=== PATIENT | male | born 1940 | race Caucasian/White ===

== ENCOUNTER → 2017-02-28 | Outpatient (CLI) | payer MEDICARE, BC ==
--- NOTE | 2017-02-28 14:38 | XR ---
Limited cervical spine HISTORY: Chronic neck and back pain 3 views of the cervical spine Correlation CT soft tissue neck 02/26/2014 Bone mineralization is reduced. There is spondylosis present especially at C5-6 and C6-7 with associa raina loss of disc height. Retrolisthesis is present at C6-7. Multilevel facet arthropathy changes are present. C7-T1 not well seen. There are calcified granuloma in the upper lobes. Vascular calcificatio n seen within the carotid arteries. IMPRESSION: Degenerative disc disease. Facet arthropathy. Osteopenia. Limitations as described. 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
--- NOTE | 2017-02-28 14:41 | XR ---
Lumbar spine HISTORY: Back pain 3 views of the lumbar spine No comparisons Bone mineralization is reduced. Anterolisthesis grade 1 L4-5, L3-4. Lumbar vertebral bodies show pres erved height. There is multilevel spondylosis. Sclerosis present in the posterior elements. Loss of d isc height especially at L5-S1, L4-5, L3-4. There may be a slight spinal curvature. IMPRESSION: Degenerative disc disease, facet arthropathy, osteopenia.
== END | disposition home or self-care (01) ==
LOC: RADXRMAIN 14:05
PROVIDERS: ATTEND Chiropractor
DX: M50.30 Other cervical disc degeneration, unspecified cervical region (principal); M51.36 Other intervertebral disc degeneration, lumbar region; M46.82 Other specified inflammatory spondylopathies, cervical region; M46.86 Other specified inflammatory spondylopathies, lumbar region; M85.88 Other specified disorders of bone density and structure, other site
CPT/HCPCS: 72040; 72100

== ENCOUNTER → 2017-03-14 | Outpatient (CLI) | payer MEDICARE, BC | LOC: CPPFTMAIN 13:38 | PROVIDERS: ATTEND Internal Medicine | DX: J44.9 Chronic obstructive pulmonary disease, unspecified (principal); R06.09 Other forms of dyspnea | CPT/HCPCS: 94060; 94726; 94729 ==

== ENCOUNTER → 2017-04-10 | Outpatient (CLI) | payer MEDICARE, BC ==
[2017-04-10 13:24] LABS: Basophils % (A) 1 %; CH 31.7; CHCM 33.5; Eosinophils # (A) 0.1 k/uL (0-0.7); Eosinophils % (A) 1 %; HDW 2.39; HGB 13.6 gm/dL (13.0-17.5); Luc % (Auto) 2; Lymphocytes # (A) 0.9 k/uL (1.0-4.8); Lymphocytes % (A) 14 %; MCH 31.7 pg (25.0-35.0); MCHC 33.3 g/dL (31.0-37.0); MCV 95.3 fL (80.0-100.0); Mean Platelet Volume 7.9; Monocytes # (A) 0.6 k/uL (0-1.0); Monocytes % (A) 9 %; Neutrophils # (A) 4.8 k/uL (1.3-7.7); Neutrophils % (A) 74 %; RDW 14.2 % (11.5-15.5); WBC 6.5 k/uL (3.8-10.6); WBC (Perox) 6.39
[2017-04-10 13:50] LABS: Rheumatoid Factor, Qnt <9 IU/mL (<12)
[2017-04-10 13:51] LABS: C Reactive Protein <5.0 mg/L (<10.0)
[2017-04-10 15:18] LABS: Erythrocyte Sedimentation Rate 13 mm/hr (0-15)
[2017-04-10 20:29] LABS: ANA w/Reflex to Titer NEGATIVE (NEGATIVE); Cyclic Citrull Pep IgG Unit <0.5 U/mL; Cyclic Citrullinated Pep IgG NEGATIVE (NEGATIVE); Scleroderma SC-70 Ab Interp NEGATIVE (NEGATIVE)
[2017-04-12 11:04] LABS: Alternaria alternata IgE <0.35 kU/L (<0.35); Asperg. fumagatus IgE <0.35 kU/L (<0.35); Asperg. fumagatus IgE Class CLASS 0; Birch(Com.Silvr) IgE Class CLASS 0; Cat Epith & Dander IgE <0.35 kU/L (<0.35); Cat Epith & Dander IgE Class CLASS 0; Clad herbarum IgE <0.35 kU/L (<0.35); Clad herbarum IgE Class CLASS 0; Common Ragweed IgE Class CLASS 0; Dermato. Pteronyssinus Class CLASS 0; Dermato. Pteronyssinus IgE <0.35 kU/L (<0.35); Dermato. farinae IgE <0.35 kU/L (<0.35); Dermato. farinae IgE Class CLASS 0; IgE (Allergen) 24.8 IU/mL (<114.0); Maple (Box Elder) IgE <0.35 kU/L (<0.35); Maple (Box Elder) IgE Class CLASS 0; Mountain Cedar IgE <0.35 kU/L (<0.35); Mountain Cedar IgE Class CLASS 0; Mouse Urine IgE Class CLASS 0; Mouse Urine Proteins,IgE <0.35 kU/L (<0.35); Mulberry IgE Class CLASS 0; Nettle IgE <0.35 kU/L (<0.35); Nettle IgE Class CLASS 0; Oak IgE <0.35 kU/L (<0.35); Penicillium notatum IgE Class CLASS 0; Rough Marshelder IgE <0.35 kU/L (<0.35); Rough Marshelder IgE Class CLASS 0; Timothy Grass IgE <0.35 kU/L (<0.35); Timothy Grass IgE Class CLASS 0; White Ash IgE Class CLASS 0
[2017-04-25 00:05] LABS: Alternaria Alternata IgG 11.8 mcg/mL (< 13.6); Cladosporium herbarium IgG 20.3 mcg/mL (< 14.7); Phoma ssp. IgG 13.7 mcg/mL (< 6.6); Saccaharomospora viridis Not detected (Not detected); Saccaharopoly. rectivirgula Not detected (Not detected)
== END | disposition home or self-care (01) ==
LOC: LABWHC1 12:05
PROVIDERS: ATTEND Internal Medicine
DX: E66.9 Obesity, unspecified (principal); R06.00 Dyspnea, unspecified; R94.2 Abnormal results of pulmonary function studies; I10 Essential (primary) hypertension; J45.50 Severe persistent asthma, uncomplicated
CPT/HCPCS: 36415; 82103; 82104; 82785; 84439; 84443; 85025; 85652; 86001; 86003; 86038; 86140; 86200; 86225; 86226; 86235; 86431; 86606; 86609

== ENCOUNTER → 2017-04-18 | Outpatient (CLI) | payer MEDICARE, BC ==
--- NOTE | 2017-04-18 15:49 | CT ---
EXAMINATION TYPE: CT chest wo con DATE OF EXAM: 04/18/2017 COMPARISON: 02/26/2014. HISTORY: dyspnea CT DLP: 962.1 mGycm. Automated Exposure Control for Dose Reduction was Utilized. TECHNIQUE: CT scan of the thorax is performed without IV contrast. FINDINGS: LUNGS: There is no evidence of focal consolidation, pleural effusion or pneumothorax. On the prone an d supine imaging. Dependent subsegmental atelectasis is seen. Subpleural reticulation is noted, left greater than right at the lung base and can also be seen in subsegmental atelectasis. No honeycombing to suggest fibrosis. At the left lung base there is an elongated opacity along the hemidiaphragm bor maurisio thought to be volume averaging and relate to the hemidiaphragm and atelectasis. Also within the l eft lower lobe adjacent to an old rib 9 fracture posterior laterally there is a focal area of pleural thickening and focal consolidation measuring 1.4 x 0.9 cm with central lucency favored to represent fibrosis from prior lung injury. Multiple old left lateral rib fractures are seen at ribs ribs 8 thro ugh 10 on the left that are calloused and healed. No evidence of bronchiectasis is identified. Lingul ar 4 mm solid pulmonary nodule is present on series 4 image 16. This was vaguely present on the exam of 02/26/2014 and measure 3 mm. This is likely benign related to granulomatous change and was only par tially seen on the prior image from slice selection given its small size. Additionally apical parench ymal calcified granulomas are noted. There is no pleural effusion or pneumothorax seen. The tracheob ronchial tree is patent. MEDIASTINUM: Lack of IV contrast is noted to limit evaluation for mediastinal and especially hilar ad enopathy. There are no definitive greater than 1 cm hilar or mediastinal lymph nodes. No cardiomega ly or pericardial effusion is seen. Moderate three-vessel coronary artery calcifications are present. OTHER: Multilevel moderate degenerative changes of the thoracic spine are seen. Old left-sided healed rib fractures as described above. IMPRESSION: 1. Focal consolidation of the left lower lung adjacent to an old healed rib fracture with the appeara nce of fibrosis favored to represent sequela of prior injury, evolved from the exam of 02/26/2014. 2. Similar appearing lingular pulmonary nodule in comparison to the exam of 02/26/2014 that in combina tion with other calcified pulmonary nodules favors a benign process. 3. Subpleural bilateral reticulation, left greater than right. This can be seen physiologically with age independent of smoking history or relate to atelectasis. No other findings for a UIP or NSIP type pattern are seen. 4. Multiple old healed left-sided rib fractures.
--- NOTE | 2017-04-19 10:46 | ECHOF ---
Referral Reason:DYSPNEA R06.00 MEASUREMENTS -------- HEIGHT: 179.1 cm WEIGHT: 81.6 kg BP: 169/79 RVIDd: 3.6 cm (< 3.3) IVSd: 1.2 cm (0.6 - 1.1) LVIDd: 4.4 cm (3.9 - 5.3) LVPWd: 1.1 cm (0.6 - 1.1) IVSs: 1.8 cm LVIDs: 2.9 cm LVPWs: 1.7 cm LA Diam: 3.0 cm (2.7 - 3.8) LAESV Index (A-L): 29.37 ml/m Ao Diam: 3.6 cm (2.0 - 3.7) AV Cusp: 2.1 cm (1.5 - 2.6) MV EXCURSION: 16.095 mm (> 18.000) MV EF SLOPE: 34 mm/s (70 - 150) EPSS: 1.5 cm MV E Luis Mgiuel: 0.72 m/s MV DecT: 404 ms MV A Luis Miguel: 1.05 m/s MV E/A Ratio: 0.69 FINDINGS -------- Sinus rhythm. This was a technically adequate study. The left ventricular size is normal. There is borderline concentric left ventricular hypertrophy. Overall left ventricular systolic function is normal with, an EF between 55 - 60 %. The right ventricle is mildly enlarged. LA is midly dilated 29-33ml/m2. The right atrium is normal in size. There is mild aortic valve sclerosis. The mitral valve leaflets are mildly thickened. Mild mitral annular calcification present. There is trace mitral regurgitation. The tricuspid valve appears structurally normal. There is no pulmonic regurgitation present. The aortic root size is normal. Normal inferior vena cava with normal inspiratory collapse consistent with estimated right atrial pre ssure of 5 mmHg. There is no pericardial effusion. CONCLUSIONS -------- 1. Sinus rhythm. 2. This was a technically adequate study. 3. The left ventricular size is normal. 4. There is borderline concentric left ventricular hypertrophy. 5. Overall left ventricular systolic function is normal with, an EF between 55 - 60 %. 6. The right ventricle is mildly enlarged. 7. LA is midly dilated 29-33ml/m2. 8. The right atrium is normal in size. 9. There is mild aortic valve sclerosis. 10. The mitral valve leaflets are mildly thickened. 11. Mild mitral annular calcification present. 12. There is trace mitral regurgitation. 13. The tricuspid valve appears structurally normal. 14. There is no pulmonic regurgitation present. 15. The aortic root size is normal. 16. Normal inferior vena cava with normal inspiratory collapse consistent with estimated right atrial pressure of 5 mmHg. 17. There is no pericardial effusion. SUPERVISING LAW ENFORCEMENT ANALYST: Veronica Lozada RDCS
== END | disposition home or self-care (01) ==
LOC: RADCTMAIN 14:38
PROVIDERS: ATTEND Internal Medicine
DX: I34.0 Nonrheumatic mitral (valve) insufficiency (principal); R91.8 Other nonspecific abnormal finding of lung field; I51.7 Cardiomegaly; I35.8 Other nonrheumatic aortic valve disorders; Z87.81 Personal history of (healed) traumatic fracture
CPT/HCPCS: 71250; 93306

== ENCOUNTER → 2017-06-07 | Outpatient (CLI) | payer MEDICARE, BC ==
--- NOTE | 2017-06-07 16:49 | NM ---
EXAMINATION TYPE: NM stress cardiolite complete DATE OF EXAM: 06/07/2017 COMPARISON: NONE HISTORY: Abnormal EKG, shortness of breath, R 94.31, R06.02 TECHNIQUE: After the intravenous administration of 10.9 mCi Tc 99m Sestamibi - Rest images obtained 45 minutes post injection. The patient exercised using a REMEDIOS protocol and 1 minute prior to peak exercise was injected with 27.8 mCi Tc 99m Sestamibi - Stress images obtained 20 minutes post injecti on. FINDINGS: Targeted heart rate was achieved during performance of the study. Review of stress and rest SPECT tori ges demonstrates no distinct perfusion abnormality. Gated analysis shows normal wall motion with an estimated left ventricular ejection fraction of 58 %. There is some gut activity present on the exam. IMPRESSION: No scintigraphic evidence for reversible ischemia within the limits of the exam
--- NOTE | 2017-06-07 18:57 | EST ---
EXERCISE STRESS AGE: 77 SEX: Male. HT: 5 feet 11-1/2 inches WT: 212 PROTOCOL: Cardiolite Puma. STAGE: I DURATION OF EXERCISE: 3:06 HEART RATE REST: 63 BLOOD PRESSURE REST: 135/74 MAXIMUM HEART RATE ACHIEVED: 106 MAXIMUM BLOOD PRESSURE: 144/80 85% MPHR: 121 100% MPHR: 142 METS: 3.6 INDICATION: Chest pain. CLINICAL INFORMATION: Baseline EKG shows sinus rhythm, poor R-wave progression and PVCs. The patient exercised on Puma protocol for a total of 3 minutes, achieving 4 METS, 74% of predicted maximal heart rate without chest pain or diagnostic ST-segment depression. The test was stopped at this level secondary to shortness of breath. CONCLUSIONS: 1. Poor exercise tolerance. 2. Inconclusive EKG part of the stress test due to inability to attain target heart rate. 3. Cardiolite portion of the stress test will be reported separately. MMODL / IJN: [id number] /
== END ==
LOC: RADNMMAIN 11:01
PROVIDERS: ATTEND Internal Medicine Cardiovascular Disease
DX: R06.02 Shortness of breath (principal); R94.31 Abnormal electrocardiogram [ECG] [EKG]
CPT/HCPCS: 93017; 78452; A9500

== ENCOUNTER → 2017-06-28 | Outpatient (CLI) | payer MEDICARE, BC ==
[~2017-06-28] MED LIST: REGADENOSON 0.4 MG/5 ML SYRINGE IV ONE
--- NOTE | 2017-06-28 11:37 | EST ---
EXERCISE STRESS DATE OF SERVICE: 06/28/2017 AGE: 77 SEX: Male HT: 70" WT: 220 pounds PROTOCOL: Lexiscan Cardiolite STAGE: DURATION OF EXERCISE: HEART RATE REST: 63 BLOOD PRESSURE REST: 153/107 MAXIMUM HEART RATE ACHIEVED: 96 MAXIMUM BLOOD PRESSURE: 162/104 85% MPHR: 121 100% MPHR: 142 METS: INDICATION: Chest pain. CLINICAL INFORMATION: STRESS DATA: Pretesting physical examination showed a heart rate of 63, pressure is 153/107 mmHg. Baseline EKG showed sinus rhythm. 0.4 mg of Lexiscan was given over 15 seconds per protocol. The max heart rate was 96 beats per minute and maximum pressure was 162/104 mmHg . Clinically the patient developed chest discomfort. The EKG did not show any significant ST changes, but the patient developed premature ventricular contractions. CONCLUSION: 1. Nondiagnostic electrocardiogram stress testing in response to Lexiscan. 2. Please follow up on the Cardiolite portion on separate report from radiology department. MMODL / IJN: [id number] /
--- NOTE | 2017-06-28 13:51 | NM ---
EXAMINATION TYPE: NM stress lexiscan cardiolite DATE OF EXAM: 06/28/2017 COMPARISON: Previous exam 06/07/2017 HISTORY: Abnormal EKG TECHNIQUE: After the intravenous administration of 11.2 mCi Tc 99m Sestamibi - Cardiolite resting SP ECT images acquired 60 minutes post injection. The patient received 0.4mg Lexiscan, 25.2 mCi Tc 99m Sestamibi - Stress images obtained [address] injection FINDINGS: Review of stress and rest SPECT images demonstrates some decreased reaffirms aquatic along the inferi or anteroseptal left ventricular myocardium towards the base of the heart on stress images as compare d to rest images. Gated analysis shows normal wall motion with an estimated left ventricular ejectio n fraction of 59 %. IMPRESSION: Findings suggest pharmacologically induced left ventricular myocardial ischemia as described A Yellow message has been communicated to Fito Rangel MD~[id number] via the [employer] system on 06/28/2017 1:48 PM, Message ID [id number].
== END | disposition home or self-care (01) ==
LOC: RADNMMAIN 08:14
PROVIDERS: ATTEND Internal Medicine Cardiovascular Disease
DX: R06.09 Other forms of dyspnea (principal)
CPT/HCPCS: 93017; 78452; A9500; J2785

== ENCOUNTER → 2017-08-15 | Outpatient (CLI) | payer MEDICARE, BC | END | disposition home or self-care (01) | LOC: RADUSWWP 08:09 | PROVIDERS: ATTEND Internal Medicine | DX: I73.00 Raynaud's syndrome without gangrene (principal); I77.6 Arteritis, unspecified | CPT/HCPCS: 93923 ==

== ENCOUNTER → 2017-09-07 | Outpatient (CLI) | payer MEDICARE, BC | END | disposition home or self-care (01) | LOC: LABWHC1 10:56 | PROVIDERS: ATTEND Internal Medicine | DX: J45.909 Unspecified asthma, uncomplicated (principal); R05 Cough | CPT/HCPCS: 36415; 83516 ==

== ENCOUNTER → 2017-09-19 | Outpatient (CLI) | payer MEDICARE, BC | END | disposition home or self-care (01) | LOC: LABWHC1 12:48 | PROVIDERS: ATTEND Psychiatry & Neurology Neurology | DX: H02.402 Unspecified ptosis of left eyelid (principal); R13.10 Dysphagia, unspecified; R53.1 Weakness | CPT/HCPCS: 83519; 86255 ==

== ENCOUNTER → 2017-09-30 | Outpatient (CLI) | payer MEDICARE, BC ==
--- NOTE | 2017-09-30 08:44 | MR ---
EXAMINATION TYPE: MR angio head wo con DATE OF EXAM: 09/30/2017 8:37 AM COMPARISON: NONE HISTORY: Dizzy, some hearing loss TECHNIQUE: Time of flight images focusing on the [place] were performed without contrast. FINDINGS: The left vertebral artery is dominant. The right posterior to indicating arteries visualize d. The left is not. Both ophthalmic arteries are visualized. There is normal arborization of the middle cerebral artery. There is no sizable aneurysm. IMPRESSION: Normal MRI of the [place].
--- NOTE | 2017-09-30 08:47 | MR ---
EXAMINATION TYPE: MR brain wo con DATE OF EXAM: 09/30/2017 8:38 AM. COMPARISON: NONE. HISTORY: Dizziness and hearing loss. Technique: Multiplanar, multiecho imaging of the brain was obtained without intravenous contrast. FINDINGS: Midline structures are unremarkable. There is a normal craniocervical junction. Echoplanar diffusion imaging is normal. There is a 2.1 cm retention cyst or polyp seen arising from the inferior aspect of the right maxillar y sinus. There is chronic mucoperiosteal thickening involving the left maxillary sinus. The orbits are unremarkable. There is no CP angle mass lesion. There is both confluent and punctate periventricular white matter change seen in the FLAIR dataset. T his is likely on the basis of small vessel disease and chronic ischemic change. There is no mass effe ct, midline shift or intracranial blood. IMPRESSION: 1. NO ACUTE INTRACRANIAL ABNORMALITY. 2. 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 3. SINUS MUCOSAL DISEASE.
== END | disposition home or self-care (01) ==
LOC: RADMRIMAIN 08:00
PROVIDERS: ATTEND Psychiatry & Neurology Neurology
DX: R90.82 White matter disease, unspecified (principal); R53.1 Weakness; Z86.73 Personal history of transient ischemic attack (TIA), and cerebral infarction without residual deficits
CPT/HCPCS: 70544; 70551

== ENCOUNTER → 2017-10-27 | Outpatient (CLI) | payer MEDICARE, BC ==
--- NOTE | 2017-10-27 13:46 | CT ---
EXAMINATION TYPE: CT chest wo con DATE OF EXAM: 10/27/2017 COMPARISON: 04/18/2017 HISTORY: Myasthenia gravis CT DLP: 447 mGycm. Automated Exposure Control for Dose Reduction was Utilized. TECHNIQUE: CT scan of the thorax is performed without IV contrast. FINDINGS: LUNGS: Calcified right upper lobe pulmonary granuloma is again noted. Similar-appearing consolidation adjacent to an old left lateral rib fracture is seen in comparison to the prior of 04/18/2017 and fe murs chronic pleural thickening and fibrosis. Again there is subpleural reticulation that could relat e to early fibrosis or again may be seen physiologically with age) and a smoking history or related t o atelectasis. No honeycombing is appreciated. No interseptal lobular thickening. Minimal right lower lobe cylindrical bronchiectasis is seen. Left apical granuloma is also noted. Lingular pulmonary nod ules again stable from 2013 and should be considered benign. No new pulmonary nodule or focal consoli dation. No pleural effusion or pneumothorax. The lungs are grossly clear, there is no concerning pare nchymal mass or nodule identified. There is no pleural effusion or pneumothorax seen. The tracheob ronchial tree is patent. MEDIASTINUM: Lack of IV contrast is noted to limit evaluation for mediastinal and especially hilar ad enopathy. There are no definitive greater than 1 cm hilar or mediastinal lymph nodes. No cardiomega ly or pericardial effusion is seen. Moderate three-vessel coronary calcifications are in seen. OTHER: Probable pancreatic parenchymal atrophy is noted. No dilated bowel in the upper abdomen. Thick ening of the adrenal glands is seen that is symmetric bilaterally likely related to adrenal gland hyp erplasia. Multilevel mild compression deformities of the thoracic spine are evident in addition to mi ld multilevel degenerative changes these appear overall similar from 2014. Multiple old left-sided he aled rib fractures are again noted. Minimal bilateral retroareolar symmetric gynecomastia is incident ally noted. IMPRESSION: 1. Stable appearing area of pleural thickening and consolidation in the left lower lobe adjacent to a n old left rib fracture in comparison the prior of 04/18/2017 favored to represent benign pleural thi ckening and fibrosis. 2. Unchanged subpleural reticulation, left greater than right, which again can be seen physiologicall y with age independent of smoking history. Again no other findings of UIP or NSIP are seen. 3. Calcified bilateral apical pulmonary nodules and lingular pulmonary nodule should be considered be nign. 4. Strand-like density of the pancreas is favored to represent pancreatic atrophy although correlatio n with serum amylase and lipase are recommended to exclude pancreatitis.
== END ==
LOC: RADCTMAIN 13:04
PROVIDERS: ATTEND Psychiatry & Neurology Neurology
DX: J64 Unspecified pneumoconiosis (principal); R91.1 Solitary pulmonary nodule; G70.00 Myasthenia gravis without (acute) exacerbation
CPT/HCPCS: 71250

== ENCOUNTER → 2018-10-04 | Outpatient (CLI) | payer MEDICARE, BC ==
--- NOTE | 2018-10-04 11:42 | US ---
EXAMINATION TYPE: US kidneys/renal and bladder DATE OF EXAM: 10/04/2018 COMPARISON: NONE CLINICAL HISTORY: N18.3 CKD. EXAM MEASUREMENTS: Right Kidney: 10.6 x 5.8 x 4.8 cm Left Kidney: 10.9 x 4.9 x 4.7 cm Right Kidney: Inferior pole obscured by bowel gas, hypoechoic nodule measuring 1.1 x 1.3 x 1.0cm Left Kidney: No hydronephrosis or masses seen Bladder: wnl Bilateral Jets seen: Yes IMPRESSION: Hypoechoic nodule lower pole of the right kidney does demonstrate through transmission. Suggestive of a renal cyst.
== END ==
LOC: RADUSWWP 09:29
PROVIDERS: ATTEND Internal Medicine Nephrology
DX: N28.89 Other specified disorders of kidney and ureter (principal); N18.3 Chronic kidney disease, stage 3 (moderate)
CPT/HCPCS: 76770

== ENCOUNTER → 2018-10-12 | Outpatient (CLI) | payer MEDICARE, BC ==
[2018-10-12 10:48] LABS: Basophils % (A) 0 %; Eosinophils # (A) 0.1 k/uL (0-0.7); Eosinophils % (A) 1 %; HCT 37.4 % (39.0-53.0); HGB 12.3 gm/dL (13.0-17.5); Lymphocytes # (A) 0.8 k/uL (1.0-4.8); Lymphocytes % (A) 12 %; MCH 31.2 pg (25.0-35.0); MCV 94.6 fL (80.0-100.0); Mean Platelet Volume 7.6; Monocytes # (A) 0.5 k/uL (0-1.0); Monocytes % (A) 8 %; Neutrophils # (A) 5.1 k/uL (1.3-7.7); Neutrophils % (A) 76 %; Platelet Count 201 k/uL (150-450); RBC 3.95 m/uL (4.30-5.90); WBC 6.6 k/uL (3.8-10.6)
[2018-10-12 11:15] LABS: Appearance,Urine Clear (Clear); Bilirubin,Urine Negative (Negative); Blood,Urine Negative (Negative); Color,Urine Yellow; Glucose,Urine (UA) Negative (Negative); Ketones,Urine Negative (Negative); Leukocyte Esterase,Urine Negative (Negative); Nitrite,Urine Negative (Negative); Protein,Urine Negative (Negative); Specific Gravity,Urine 1.017 (1.001-1.035); Urobilinogen,Urine <2.0 mg/dL (<2.0)
[2018-10-12 16:05] LABS: Iron Saturation 29.25 (15.00-50.00)
[2018-10-12 16:10] LABS: Albumin 4.2 g/dL (3.80-4.90); Anion Gap 5.8 mmol/L (4.00-12.00); Calcium 9.4 mg/dL (8.7-10.3); Carbon Dioxide 24.2 mmol/L (21.6-31.8); Potassium 4.2 mmol/L (3.5-5.5); Uric Acid 7.3 mg/dL (3.7-8.7)
[2018-10-12 17:34] LABS: Parathyroid Hormone Intact 68.4 pg/mL (14.0-72.0)
[2018-10-12 18:02] LABS: Creatinine,Urine Random 95.5 mg/dL
[2018-10-12 18:50] LABS: Total Protein,Urine Random 8.5 mg/dL (0.0-13.5)
== END | disposition home or self-care (01) ==
LOC: LABWHC1 09:48
PROVIDERS: ATTEND Internal Medicine Nephrology
DX: M10.9 Gout, unspecified (principal); E55.9 Vitamin D deficiency, unspecified; N39.0 Urinary tract infection, site not specified; N18.3 Chronic kidney disease, stage 3 (moderate); D63.1 Anemia in chronic kidney disease; N25.81 Secondary hyperparathyroidism of renal origin; R80.9 Proteinuria, unspecified
CPT/HCPCS: 36415; 80048; 81003; 82040; 82306; 82570; 82728; 83540; 83550; 83735; 83970; 84100; 84156; 84550; 85025

== ENCOUNTER → 2019-01-29 | Outpatient (CLI) | payer MEDICARE, BC ==
[2019-01-29 10:39] LABS: Basophils % (A) 1 %; Eosinophils # (A) 0.1 k/uL (0-0.7); Eosinophils % (A) 2 %; HCT 40.5 % (39.0-53.0); HGB 13.5 gm/dL (13.0-17.5); Lymphocytes % (A) 17 %; MCH 31.9 pg (25.0-35.0); MCHC 33.4 g/dL (31.0-37.0); MCV 95.6 fL (80.0-100.0); Monocytes # (A) 0.5 k/uL (0-1.0); Monocytes % (A) 8 %; Neutrophils # (A) 4.3 k/uL (1.3-7.7); Neutrophils % (A) 71 %; Platelet Count 219 k/uL (150-450); RBC 4.23 m/uL (4.30-5.90); RDW 14.2 % (11.5-15.5)
[2019-01-29 11:18] LABS: Appearance,Urine Clear (Clear); Bilirubin,Urine Negative (Negative); Blood,Urine Negative (Negative); Color,Urine Yellow; Glucose,Urine (UA) Negative (Negative); Ketones,Urine Negative (Negative); Leukocyte Esterase,Urine Negative (Negative); Nitrite,Urine Negative (Negative); Protein,Urine Negative (Negative); Specific Gravity,Urine 1.019 (1.001-1.035); Urobilinogen,Urine <2.0 mg/dL (<2.0)
[2019-01-29 16:35] LABS: Anion Gap 8.2 mmol/L (4.00-12.00); BUN/Creat Ratio 20.71 Ratio (12.00-20.00); Calcium 9.5 mg/dL (8.7-10.3); Carbon Dioxide 22.8 mmol/L (21.6-31.8); Potassium 4.1 mmol/L (3.5-5.5)
[2019-01-30 01:34] LABS: Creatinine,Urine Random 165.8 mg/dL
[2019-01-30 01:57] LABS: Total Protein,Urine Random 16.2 mg/dL (0.0-13.5)
== END | disposition home or self-care (01) ==
LOC: LABWHC1 09:41
PROVIDERS: ATTEND Nurse Practitioner Family
DX: N18.3 Chronic kidney disease, stage 3 (moderate) (principal); D63.1 Anemia in chronic kidney disease; N39.0 Urinary tract infection, site not specified; R80.9 Proteinuria, unspecified
CPT/HCPCS: 36415; 80048; 81003; 82570; 84156; 85025

== ENCOUNTER → 2022-02-28 | Outpatient (CLI) | payer MEDICARE, BC ==
[2022-02-28 17:58] LABS: HGB 13.1 g/dL (13.0-17.0); MCH 32.2 pg (27.0-32.0); MCHC 32.8 g/dL (32.0-37.0); MCV 98.3 fL (80.0-97.0); Mean Platelet Volume 10.9 fL (9.5-12.2); NRBC Per 100 WBC 0 /100 WBCS (0.0-0.0); Platelet Count 205 X 10*3/uL (140-440); RBC 4.07 X 10*6/uL (4.40-5.60); RDW 12.8 % (11.5-14.5); WBC 6.17 X 10*3/uL (4.50-10.00)
[2022-02-28 18:15] LABS: African American GFR (CKD) 58.4 (60.0-200.0); Anion Gap 10.4 mmol/L (10.00-18.00); Blood Urea Nitrogen 26.6 mg/dL (9.0-27.0); Carbon Dioxide 23.1 mmol/L (20.0-27.5); Non-African American GFR(CKD) 50.3 (60.0-200.0); Potassium 4.9 mmol/L (3.5-5.5)
== END | disposition home or self-care (01) ==
LOC: LABPAT 12:18
PROVIDERS: ATTEND Internal Medicine Interventional Cardiology
DX: Z01.812 Encounter for preprocedural laboratory examination (principal); I49.5 Sick sinus syndrome; I47.20 Ventricular tachycardia, unspecified
CPT/HCPCS: 80051; 82565; 84520; 85027

== ENCOUNTER 2022-03-04 09:58 | Day surgery (SDC) | payer MEDICARE, BC ==
[2022-03-03 09:17] VITALS: BMI 28.7
[~2022-03-04 09:58] MED LIST changes: +ALPRAZolam 0.25 MG TAB PO PRN; +ALPRAZolam 0.5 MG TAB PO PRN; +ASPIRIN 325 MG TAB PO STA; +ATORVASTATIN 80 MG TAB PO STA; +HEPARIN SODIUM,PORCINE 10,000 UNIT in SODIUM CHLORIDE 0.9% 1,000 ML IRRIGATION PRN; +HEPARIN SODIUM,PORCINE 2,500 UNIT in SODIUM CHLORIDE 0.9% 250 ML IRRIGATION PRN; +NITROGLYCERIN SL TABS 0.4 MG TAB SUBLINGUAL PRN; -REGADENOSON 0.4 MG/5 ML SYRINGE IV ONE
[2022-03-04] MEDS: SODIUM CHLORIDE 0.9% 1,000 ML in EMPTY BAG 1 BAG IV SCH ×2 (10:20→17:40)
[2022-03-04] MEDS ORDERED: ASPIRIN 81 MG ONE (10:38)
[2022-03-04] MEDS ORDERED: LIDOCAINE 1% INJ 10MG/ML (30 ML VIAL-PF) SQ ONE (12:50)
[2022-03-04] MEDS ORDERED: MIDAZOLAM 2 MG/2 ML VIAL IV ONE (12:50)
[2022-03-04] MEDS ORDERED: HEPARIN SODIUM 1,000 UN/ML (10ML VL) IV ONE (13:11)
[2022-03-04] MEDS ORDERED: traMADol 50 MG TAB PO PRN (13:36)
[2022-03-04] MEDS ORDERED: ZOLPIDEM 5 MG TAB PO PRN (13:37)
[2022-03-04] MEDS ORDERED: MAG HYDROX/AL HYDROX/SIMETH 30 ML CUP PO PRN (13:37)
[2022-03-04] MEDS ORDERED: ATROPINE SULFATE 0.1 MG/ML 10ML SYRINGE IV PRN (13:37)
[2022-03-04] MEDS ORDERED: RX INFO: IV CONTRAST WAS GIVEN 1 EACH MISC MISCELLANE PRN (13:37)
[2022-03-04] MEDS ORDERED: CLOPIDOGREL 75 MG TAB PO ONE (13:38)
[2022-03-04] MEDS ORDERED: IOPAMIDOL-370 125ML BTL INJ ONE (13:39)
--- NOTE | 2022-03-04 13:43 | P.PCN ---
Date of Procedure: 03/04/22 Operative Findings: CARDIAC CATHETERIZATION AND PERCUTANEOUS CORONARY INTERVENTION PERFORMING PHYSICIAN: Fito Rangel MD, [facility] PROCEDURE PERFORMED: 1. Selective right and left coronary angiogram 2. Left heart catheterization 3. Successful stenting of first obtuse marginal branch using 3.0 x 18 mm Xience TYLER which with an excellent angiographic results 4. Selective right common femoral artery and INDICATION: This is an 81-year-old gentleman was known coronary artery disease based on heart catheterization was performed somewhere out of [facility] as well as hypertension and dyslipidemia who sees Dr. Smith regularly was experiencing symptoms of shortness of breath with exertional concerning for angina. He underwent a Holter monitor and that showed DVC burden at 12%. He was having also polymorphic PVCs. In the light of that a heart catheterization was advised to rule out severe underlying coronary artery disease. COMPLICATION: None APPROACH: Right radial artery and right common femoral artery LEVEL OF SEDATION: Moderate with the sedation time off 43 minutes PROCEDURE DESCRIPTION: After obtaining an informed consent the patient was brought to the cardiac minilab operator. Initially the right radial artery was accessed but the right radial artery was extremely calcified and we could not advance the wire. Because of that the right radial approach was aborted and I decided to go from the groin. The right common femoral artery was cannulated using micropuncture technique, the micro- puncture wire passed easily then I placed a 6-Cuban sheath. Selective right and left coronary angiogram was performed using JR4 and JL4 catheters. Left heart catheterization was performed using the JR4 catheter. After that I did intervene on the LCx. The procedure was completed without any complications SELECTIVE CORONARY ANGIOGRAM: The right coronary artery: Large-caliber vessel nondominant vessel. The RCA has mild to moderate diffuse disease with no high-grade stenosis Left main: Long but angiographically normal. Bifurcates into a LCx and LAD The left circumflex: Large caliber vessel nondominant vessel. The LCx gives rises into a large OM branch which has a critical lesion appeared to be in the range of 80-90% The left anterior descending artery: Large caliber vessel was mild to moderate diffuse disease was no high-grade stenosis HEMODYNAMICS: The old EDP was 6 mmHg was no significant gradient across aortic valve PCI OF THE obtuse marginal: Anticoagulation was initiated using heparin with continuous ACT monitoring. Subsequently and because of the extreme tortuosity in the right iliac I decided to change my 11 cm sheath into 23 cm sheath. Subsequently I did engage the left main using CLS guiding catheter which was 3.5. I did wire the OM using 2 wires the first wire was a whisper and the second wire was advanced through. PTCA ballooning was performed using 2.5 x 12 mm balloon. Subsequently I deployed 3.0 x 18 mm stent where the stent was positioned under fluoroscopy guidance and deployed under its nominal pressure. The following angiogram showed excellent angiographic results and the procedure was completed without any complications CONCLUSION: Critical disease involving OM1. Successful stenting was performed using 3.0 x 18 mm stent with an excellent angiographic results Mild to moderate disease involving the LAD [id number] disease involving the RCA Normal left-sided filling pressure POSTPROCEDURE MANAGEMENT: #1 dual antiplatelet therapy with aspirin and Plavix for a minimum of 6 month and preferably twelve-month #2 aggressive cholesterol control #3 follow-up with the patient
[2022-03-04] MEDS ORDERED: NIFEdipine XL 30 MG TAB.ER.24 PO SCH (14:00)
[2022-03-04] MEDS: carvediloL 6.25 MG TAB PO SCH (17:40)
[2022-03-04] MEDS: ACETAMINOPHEN TAB 325 MG TAB PO SCH (20:38)
[2022-03-04] MEDS ORDERED: ALPRAZolam 0.25 MG TAB PO SCH (21:00)
[2022-03-04] MEDS ORDERED: ASPIRIN 81 MG PO SCH (21:00)
[2022-03-05 07:04] LABS: Basophils % (A) 1 %; Eosinophils # (A) 0.1 k/uL (0-0.7); Eosinophils % (A) 2 %; HCT 39.7 % (39.0-53.0); HGB 13.4 gm/dL (13.0-17.5); Lymphocytes # (A) 1.1 k/uL (1.0-4.8); Lymphocytes % (A) 16 %; MCH 32.9 pg (25.0-35.0); MCHC 33.8 g/dL (31.0-37.0); MCV 97.5 fL (80.0-100.0); Mean Platelet Volume 8.8; Monocytes # (A) 0.7 k/uL (0-1.0); Monocytes % (A) 10 %; Neutrophils # (A) 4.6 k/uL (1.3-7.7); Neutrophils % (A) 70 %; Platelet Count 176 k/uL (150-450); RBC 4.08 m/uL (4.30-5.90); RDW 12.4 % (11.5-15.5); WBC 6.6 k/uL (3.8-10.6)
[2022-03-05 07:14] LABS: African American GFR (CKD) 78 (>60 ml/min/1.73 sqM); Anion Gap 10 mmol/L; Blood Urea Nitrogen 23 mg/dL (9-20); Calcium 8.9 mg/dL (8.4-10.2); Carbon Dioxide 21 mmol/L (22-30); Chloride 106 mmol/L (98-107); Glucose 93 mg/dL (74-99); Non-African American GFR(CKD) 68 (>60 ml/min/1.73 sqM); Potassium 4.2 mmol/L (3.5-5.1); Sodium 137 mmol/L (137-145)
[2022-03-05] MEDS: ACETAMINOPHEN TAB 325 MG TAB PO SCH (07:46)
[2022-03-05] MEDS: carvediloL 6.25 MG TAB PO SCH (07:46)
[2022-03-05] MEDS ORDERED: CLOPIDOGREL 75 MG TAB PO SCH (09:00)
[2022-03-05] MEDS ORDERED: ATORVASTATIN 40 MG TAB PO SCH (09:00)
[2022-03-05] MEDS ORDERED: CHOLECALCIFEROL 25 MCG (1000 IU) TABLET PO SCH (09:00)
[2022-03-05 09:19] VITALS: BP 149/94; PULSE 48; RESP 18; TEMP 97.6
--- NOTE | 2022-03-05 09:22 | P.DS ---
Providers Attending physician: Fito Rangel Consults: 03/04/22 13:37 Consult Physician Routine Consulting Provider: [facility] Consult Reason/Comments: Post Interventional patient Do you want consulting provider notified?: Already Contacted Primary care physician: [facility] Course: The patient is a very pleasant 81-year-old gentleman who underwent yesterday a heart catheterization and stenting of the left circumflex. The patient was seen this morning. He is asymptomatic. He is hemodynamically stable. The right groin is soft and nontender and with no bruises. The patient is going to be discharged home on dual antiplatelet therapy including aspirin and Plavix and also high intensity statin and the patient will be seen by Dr. Smith his primary boiler erector in a week or so. Plan - Discharge Summary Discharge Rx Participant: No New Discharge Prescriptions: New Clopidogrel [Plavix] 75 mg PO DAILY #90 tab Continue Cholecalciferol [Vitamin D3 (25 Mcg = 1000 Iu)] 50 mcg PO DAILY ALPRAZolam [Niravam (ODT)] 0.25 mg PO HS NIFEdipine [Adalat CC] 30 mg PO 1400 Atorvastatin [Lipitor] 40 mg PO DAILY carvediloL [Coreg] 6.25 mg PO BID traMADol HCL 50 mg PO TID PRN PRN Reason: Pain Aspirin [Adult Low Dose Aspirin EC] 81 mg PO HS Acetaminophen [Tylenol Arthritis] 650 mg PO BID Discharge Medication List ALPRAZolam [Niravam (ODT)] 0.25 mg PO HS 03/03/22 [History] Acetaminophen [Tylenol Arthritis] 650 mg PO BID 03/03/22 [History] Aspirin [Adult Low Dose Aspirin EC] 81 mg PO HS 03/03/22 [History] Atorvastatin [Lipitor] 40 mg PO DAILY 03/03/22 [History] Cholecalciferol [Vitamin D3 (25 Mcg = 1000 Iu)] 50 mcg PO DAILY 03/03/22 [History] NIFEdipine [Adalat CC] 30 mg PO 1400 03/03/22 [History] carvediloL [Coreg] 6.25 mg PO BID 03/03/22 [History] traMADol HCL 50 mg PO TID PRN 03/03/22 [History] Clopidogrel [Plavix] 75 mg PO DAILY #90 tab 03/05/22 [Rx] Follow up Appointment(s)/Referral(s): Lucien Smith MD [STAFF PHYSICIAN] - 1 Week
== END 2022-03-05 09:56 | disposition home or self-care (01) ==
LOC: CATHCVL 09:58 → 6NMEDSUR 13:30 → CATHCVL 03-05 09:56
PROVIDERS: ATTEND Internal Medicine Interventional Cardiology
DX: I25.10 Atherosclerotic heart disease of native coronary artery without angina pectoris (principal); I10 Essential (primary) hypertension; I70.208 Unspecified atherosclerosis of native arteries of extremities, other extremity; E78.5 Hyperlipidemia, unspecified; I49.3 Ventricular premature depolarization; G47.33 Obstructive sleep apnea (adult) (pediatric); I12.9 Hypertensive chronic kidney disease with stage 1 through stage 4 chronic kidney disease, or unspecified chronic kidney disease; N18.9 Chronic kidney disease, unspecified; Z79.82 Long term (current) use of aspirin; Z79.899 Other long term (current) drug therapy; Z88.5 Allergy status to narcotic agent; Z88.2 Allergy status to sulfonamides; Z88.8 Allergy status to other drugs, medicaments and biological substances
CPT/HCPCS: 93458; 80048; 85025; C9600; C1760; C1769 ×4; C1887; C1725; C1894 ×2; C1874; J2250; J2001; J1644; Q9967

== ENCOUNTER → 2022-09-16 | Outpatient (CLI) | payer MEDICARE, BC ==
[2022-09-16 19:22] LABS: African American GFR (CKD) 49.2 (60.0-200.0); Non-African American GFR(CKD) 42.4 (60.0-200.0); Potassium 4.3 mmol/L (3.5-5.5)
[2022-09-16 20:38] LABS: HGB 13.2 g/dL (13.0-17.0); MCH 32.8 pg (27.0-32.0); MCV 99.5 fL (80.0-97.0); Mean Platelet Volume 11.3 fL (9.5-12.2); NRBC Per 100 WBC 0 /100 WBCS (0.0-0.0); Platelet Count 192 X 10*3/uL (140-440); RBC 4.02 X 10*6/uL (4.40-5.60); RDW 13.5 % (11.5-14.5); WBC 6.67 X 10*3/uL (4.50-10.00)
== END | disposition home or self-care (01) ==
LOC: LABPAT 11:12
PROVIDERS: ATTEND Internal Medicine Clinical Cardiac Electrophysiology
DX: Z01.812 Encounter for preprocedural laboratory examination (principal); I49.3 Ventricular premature depolarization; I47.29 Other ventricular tachycardia
CPT/HCPCS: 80051; 82565; 84520; 85027

== ENCOUNTER 2022-09-27 09:11 | Day surgery (SDC) | payer MEDICARE, BC ==
[2022-09-27] MEDS: SODIUM CHLORIDE 0.9% 1,000 ML IV SCH (09:42)
[2022-09-27] MEDS ORDERED: HEPARIN SODIUM,PORCINE 5,000 UNIT/ML 1 ML VIAL ONE (10:28)
[2022-09-27] MEDS ORDERED: ISOPROTERENOL 250 MCG/1.25 ML SYR IV ONE (10:28)
[2022-09-27] MEDS ORDERED: fentaNYL (PF) 50 MCG/ML 2 ML AMP ONE (10:28)
[2022-09-27] MEDS ORDERED: PROTAMINE SULFATE 10 MG/ML 5 ML VIAL IV ONE (10:28)
[2022-09-27] MEDS ORDERED: MIDAZOLAM 2 MG/2 ML VIAL ONE (10:28)
[2022-09-27] MEDS ORDERED: HEPARIN SODIUM,PORCINE 10,000 UNIT/ML 1 ML VIAL ONE (10:28)
--- NOTE | 2022-09-27 10:36 | P.HPCAR ---
History of Present Illness This is Dr. Smith dictating an H/P on this patient The patient was interviewed and examined IMPRESSION / ASSESSMENT: Frequent PVCs and nonsustained VT, 28% PVC burden Recurrent episodes of nonsustained VT on Holter monitor History of sick sinus syndrome Patient's PVCs have remained despite coronary stenting, CAD management and medical treatment with beta blockers Severe sleep apnea, using a CPAP past Hypertension, controlled CAD status post stenting to the obtuse marginal previously Not a candidate for antiarrhythmic drug therapy on account of SSS Preserved LV systolic function PLAN: Diagnostic EP study and possible radiofrequency ablation of PVCs and nonsustained VT HPI Patient continues to have PVCs and frequent episodes of nonsustained ventricular tachycardia despite treatment of coronary artery disease, revascularization of the OM territory and beta blockers He has underlying sick sinus syndrome He denies any fever chills cough No coronary symptoms No heart failure symptoms No angina since he was last seen ROS: No fever chills or rigors, no cough, phlegm or expectoration, no nausea, vomiting or diarrhea, no hematuria, dysuria, no musculoskeletal complaints, no strokes or seizures, no skin lesions. EXAMINATION: Afebrile temperature 96.9, pulse rate 86, blood pressure 134/70. His mercury, pulse ox 95% on room air No JVD No orthopnea Clear lungs no rhonchi no crackles Normal heart sounds no murmurs REVIEW OF LABS, ECG & MEDICAL DATA Medications include carvedilol, nifedipine, Plavix, atorvastatin, aspirin Physical Exam Vitals: Vital Signs Temp Pulse Resp BP Pulse Ox 09/27/22 09:40 96.9 F L 86 18 134/78 95 Intake and Output 09/26/22 09/27/22 09/27/22 22:59 06:59 14:59 Intake Total 20 Balance 20 Intake: IV 20 Other: Weight 94.3 kg Past Medical History Past Medical History: Dementia, Hyperlipidemia, Hypertension, Memory Impairment, Osteoarthritis (OA), Respiratory Disorder, Sleep Apnea/CPAP/BIPAP Additional Past Medical History / Comment(s): "thought he had a stroke after last heart cath" 2018 per spouse, irregular heart beat per spouse, "respiratory issues but they never put a name to it", uses CPAP, has oxygen 2L PRN, no resp. dx., arthritis in spine, see Dr. Smith H & P History of Any Multi-Drug Resistant Organisms: None Reported Past Surgical History: Heart Catheterization With Stent, Hernia Repair, Joint Replacement, Orthopedic Surgery Additional Past Surgical History / Comment(s): precancer removed from face, rt carpal tunnel, ericka knee replacement- 2 each knee(cadaver bone left knee), ericka shoulder surgery-reversal one shoulder, ericka cataracts Past Anesthesia/Blood Transfusion Reactions: Previous Problems w/ Anesthesia Additional Past Anesthesia/Blood Transfusion Reaction / Comment(s): "thought he had a stroke during last heart cath 5 yrs ago from too much anesthesia", possibly from propofol per spouse Date of Last Stent Placement:: 2021 Smoking Status: Former smoker - Past Family History Father Family Medical History: Cancer Physical Examination Vital Signs Temp Pulse Resp BP Pulse Ox 09/27/22 09:40 96.9 F L 86 18 134/78 95 Intake and Output 09/26/22 09/27/22 09/27/22 22:59 06:59 14:59 Intake Total 20 Balance 20 Intake: IV 20 Other: Weight 94.3 kg Results Current Medications Generic Name Dose Route Start Last Admin Trade Name Harveyq PRN Reason Stop Dose Admin Sodium Chloride 1,000 mls @ 50 mls/hr 09/27/22 06:04 09/27/22 09:42 Saline 0.9% IV 10/27/22 06:05 20 mls .Q20H RICKI Administration Intake and Output 09/26/22 09/27/22 09/27/22 22:59 06:59 14:59 Intake Total 20 Balance 20 Intake: IV 20 Other: Weight 94.3 kg Patient Weight 09/28/22 06:59 Weight 94.3 kg
[2022-09-27] MEDS ORDERED: LIDOCAINE 1% INJ 10MG/ML (20 ML MDV) ONE ×2 (10:49→11:25)
[2022-09-27] MEDS ORDERED: HEPARIN SODIUM 1,000 UN/ML (10ML VL) ONE (11:19)
[2022-09-27] MEDS ORDERED: LIDOCAINE 1% INJ 10MG/ML (20 ML MDV) SQ ONE ×2 (11:20→11:28)
[2022-09-27] MEDS ORDERED: HEPARIN SOD,PORK IN 0.45% NACL 25,000 UNIT in 0.45% NACL 1 250ML.BAG IV ONE (11:28)
[2022-09-27] MEDS ORDERED: HEPARIN SODIUM (1,000 UNIT/ML) 1,000 UNIT in SODIUM CHLORIDE 0.9% 1,000 ML IRRIGATION ONE (11:31)
[2022-09-27] MEDS ORDERED: ACETAMINOPHEN IV (For NPO) 1,000 MG in EMPTY BAG 1 BAG IVPB ONE (14:55)
[2022-09-27] MEDS ORDERED: ACETAMINOPHEN TAB 325 MG TAB PO PRN (14:55)
[2022-09-27] MEDS ORDERED: ALPRAZOLAM 0.25 MG PO PRN (14:56)
--- NOTE | 2022-09-27 15:26 | P.EPPROC ---
- EP Procedure Note Electrophysiology Procedure Note: Diagnosis Very frequent PVCs and nonsustained VT despite medical treatment, coronary stenting of the left circumflex and management of risk factors Preserved LV systolic function Final diagnosis Frequent PVCs of multiple different morphologies but predominantly to morphologies The first was LVOT VT from the anterior wall with an MDI of close to 50% consistent with a deep myocardial focus/epicardial focus The second frequent PVC was at RVOT PVC from the free wall/posterior wall of the RVOT Details Patient was brought to the EP lab in a fasting state. Written informed consent was obtained prior to the procedure. Mild conscious sedation was provided through the procedure and the patient was kept fairly awake At first an assessment of his PVC burden and morphology was made. He had very frequent PVCs of different morphologies. Most PVCs were left-sided. However the most frequent PVC was from the outflow tract of the LV and the second most frequent was RVOT PVCs from the free wall/posterior wall. However multiple other morphologies are noted The left-sided PVCs appeared to be deep myocardial an epicardial with an MDI of greater than 50% Cinefluoroscopy of the right hemidiaphragm and then the left hemidiaphragm was performed during inspiration and expiration. There was no evidence for diaphragmatic paralysis Diaphragms at the same level. This was performed since the patient had frequent episodes of hyperventilation and breathlessness in our office on multiple visits However there was no evidence for diaphragmatic paralysis Next, 2 venous sheaths were placed in the left femoral vein and one venous sheaths in the right femoral vein Sheath was placed in the right femoral artery for hemodynamic monitoring and sampling Diagnostic catheters placed in the high right atrium coronary sinus His bundle area right ventricle and later in the aortic root of the left ventricle Hemodynamic monitoring was performed through the procedure and her blood pressure remained stable. Heparin was infused through the procedure with an ACT about 300 seconds The coronary sinus catheter was placed in the anterolateral LV vein but the PVCs did not seem to originate from the LV veins First 3-D electro-anatomic mapping was performed for the right ventricle. Intracardiac echo revealed preserved LV and RV size and function but pericarditis with basal thickening and small exudate The pulmonic valve the tricuspid valve with time. His bundle was tagged The RVOT PVCs were mapped to the free wall/posterior wall junction below the pulmonic valve Activation mapping this was performed and an early site with excellent unipolar signals obtained which had a very high concordance with the clinical PVCs Following that pace mapping was performed which had a very high concordance of greater than 96-97% RF ablation was performed here with 30-35 warts and good contact force These PVCs were eliminated almost completely Following that an irrigated tip cath was placed in the aorta and mapping of the aortic root and the LV was performed The most frequent PVC was dictated from the LV was targeted. This seemed to be in outflow tract PVC. Activation mapping was performed and this was localized to the anterior LVOT wall just in front of the right coronary cusp, close to the commissure RF ablation was performed at 40 W since we knew that this was a deep focus with a high MDI of 50% or greater Reduction in the PVC burden was obtained. Following that high dose Isuprel was started. No RVOT PVCs were noted LV PVCs were noted but without any ventricle couplets or nonsustained VT Sinus cycle length 1072 ms, AZ interval 196 ms, QRS 118 and QT 440 ms . AH interval 86 ms and HV interval 39 ms AV node Wenckebach block 310 ms LV pacing was performed, RV pacing was performed. Patient tolerated the procedure well without any acute complications. The venous puncture sites were closed with Vascade. The arterial pulses site were closed with Angio-Seal Plan Continue dual antiplatelet therapy and continue cardiac medications
--- NOTE | 2022-09-27 15:29 | P.PRLE ---
RE: Garo Bhandari The area Garo underwent a diagnostic EP study and was found to have very frequent PVCs of multiple different morphologies He underwent successful ablation of an RVOT PVC from the free wall successfully The LV PVCs. To be deep and retargeted the most frequent PVC. Hopefully this results in a significant reduction in his PVC burden He will continue dual antiplatelet therapy and all other cardiac medications as before Thank you for entrusting me with the care of the patient Warm regards Sincerely Lucien Smith
[2022-09-27] MEDS: ASPIRIN 325 MG TAB PO SCH (15:56)
[2022-09-27] MEDS: carvediloL 6.25 MG TAB PO SCH (18:48)
[2022-09-27] MEDS ORDERED: ASPIRIN 81 MG PO SCH (21:00)
[2022-09-28] MEDS: SODIUM CHLORIDE 0.9% 1,000 ML IV SCH (02:55)
[2022-09-28] MEDS: carvediloL 6.25 MG TAB PO SCH (05:53)
[2022-09-28 07:39] VITALS: BP 141/66; RESP 18; TEMP 98
--- NOTE | 2022-09-28 08:12 | P.DS ---
Providers Attending physician: Lucien Smith Primary care physician: [facility] Course: Patient is resting comfortably in bed No chest discomfort dizziness or lightheadedness However he has ventricular bigeminy at this time Twelve-lead EKG yesterday and today shows ventricular bigeminy with RVOT PVCs This PVC is different from the RVOT PVC that was ablated yesterday Today's twelve-lead EKG shows the PVC morphology as follows: Left bundle branch block pattern with a transition in V4 Notching on the downslope of V1 r/s pattern in lead 1 and very tall upright PVCs in the inferior Yesterday patient had a PVC ablation He had multiple different PVC morphology is a However he had to most consistent and frequent morphologies The first was from the LVOT, anterior wall. It appeared to be a deep focus within MDI of 50% Ablation was performed at this site with power at 40 W The second most frequent PVC was from the low RVOT anterolateral wall The QRS in lead 1 and had an M shaped pattern This was localized to the anterior lateral free wall with activation mapping The pacemaker at this site had a 96-97% concordance Good contact force and power was closed to eliminate this focus I had a detailed discussion the patient and explained to him that he has had multiple different morphologies of PVCs of which only 2 predominant ones were ablated line however the PVC morphology today was not seen yesterday At this time I will start him on an antiarrhythmic drug at a low dose His creatinine ranges from 1.3-1.6 with a GFR that is mildly reduced and therefore I will hold off on sotalol In addition he does have bradycardia I will start him on amiodarone 200 mg by mouth daily in addition to his current medications and watch for bradycardia For now he will continue carvedilol 3.125 mg twice daily Patient Condition at Discharge: Stable Plan - Discharge Summary Discharge Rx Participant: Yes New Discharge Prescriptions: Continue Cholecalciferol [Vitamin D3 (25 Mcg = 1000 Iu)] 50 mcg PO DAILY ALPRAZolam [Niravam (ODT)] 0.25 mg PO HS PRN PRN Reason: Anxiety NIFEdipine [Adalat CC] 30 mg PO 1400 Atorvastatin [Lipitor] 40 mg PO DAILY carvediloL [Coreg] 6.25 mg PO BID Clopidogrel [Plavix] 75 mg PO DAILY #90 tab Aspirin [Adult Low Dose Aspirin EC] 81 mg PO HS Acetaminophen [Tylenol Arthritis] 650 mg PO BID Discharge Medication List ALPRAZolam [Niravam (ODT)] 0.25 mg PO HS PRN 03/03/22 [History] Acetaminophen [Tylenol Arthritis] 650 mg PO BID 03/03/22 [History] Aspirin [Adult Low Dose Aspirin EC] 81 mg PO HS 03/03/22 [History] Atorvastatin [Lipitor] 40 mg PO DAILY 03/03/22 [History] Cholecalciferol [Vitamin D3 (25 Mcg = 1000 Iu)] 50 mcg PO DAILY 03/03/22 [History] NIFEdipine [Adalat CC] 30 mg PO 1400 03/03/22 [History] carvediloL [Coreg] 6.25 mg PO BID 03/03/22 [History] Clopidogrel [Plavix] 75 mg PO DAILY #90 tab 03/05/22 [Rx] Follow up Appointment(s)/Referral(s): Lucien Smith MD [STAFF PHYSICIAN] - 1 Week Activity/Diet/Wound Care/Special Instructions: Post EP study - Ablation instructions 1. Keep access sites dry for 2 days. 2. No heavy lifting or straining for 2 days. 3. Avoid bending the hips repeatedly for 2 days. 4. You may go up and down stairs slowly Call if the following is noted 1. Bleeding, increasing swelling or pain at the access sites. 2. Increasing chest discomfort, especially upon taking a deep breath. 3. Increasing shortness of breath, at rest or with exertion. 4. Undue cough / phlegm 5. Difficulty or pain while swallowing. 6. Pain or change in color in the extremities. 7. Fever, chills, rigors. 8. Increasing headache or neurologic symptoms. 9. Dizziness, fainting, palpitations Discharge Disposition: HOME SELF-CARE
[2022-09-28 08:18] VITALS: PULSE 90
[2022-09-28 08:52] LABS: African American GFR (CKD) 63 (>60 ml/min/1.73 sqM); Anion Gap 11 mmol/L; Blood Urea Nitrogen 31 mg/dL (9-20); Calcium 8.8 mg/dL (8.4-10.2); Carbon Dioxide 19 mmol/L (22-30); Chloride 107 mmol/L (98-107); Glucose 93 mg/dL (74-99); Non-African American GFR(CKD) 55 (>60 ml/min/1.73 sqM); Potassium 4.4 mmol/L (3.5-5.1); Sodium 137 mmol/L (137-145)
[2022-09-28] MEDS ORDERED: ATORVASTATIN 40 MG TAB PO SCH (09:00)
[2022-09-28] MEDS ORDERED: AMIODARONE 200 MG TAB PO SCH (09:00)
[2022-09-28] MEDS ORDERED: CLOPIDOGREL 75 MG TAB PO SCH (09:00)
[2022-09-28] MEDS: ASPIRIN 325 MG TAB PO SCH (09:29)
[2022-09-28] MEDS ORDERED: NIFEdipine XL 30 MG TAB.ER.24 PO SCH (14:00)
== END 2022-09-28 11:54 | disposition home or self-care (01) ==
LOC: CATHEP 09:11 → 6NMEDSUR 14:31 → CATHEP 09-28 11:54
PROVIDERS: ATTEND Internal Medicine Clinical Cardiac Electrophysiology
DX: I47.20 Ventricular tachycardia, unspecified (principal); I49.5 Sick sinus syndrome; I25.10 Atherosclerotic heart disease of native coronary artery without angina pectoris; G47.33 Obstructive sleep apnea (adult) (pediatric); I10 Essential (primary) hypertension; E78.5 Hyperlipidemia, unspecified; M19.90 Unspecified osteoarthritis, unspecified site; F03.90 Unspecified dementia, unspecified severity, without behavioral disturbance, psychotic disturbance, mood disturbance, and anxiety; Z87.891 Personal history of nicotine dependence
CPT/HCPCS: 93623; 93654; 80048; 84443; C1760 ×2; C1769 ×2; C1894; C1730 ×2; C1759; C1732; J2001; J1644 ×2

== ENCOUNTER → 2024-05-27 | Outpatient (CLI) | payer MEDICARE, BC ==
--- NOTE | 2024-05-29 21:21 | MR ---
EXAMINATION TYPE: MR lumbar spine wo con DATE OF EXAM: 05/27/2024 6:27 PM COMPARISON: None. CLINICAL INDICATION: Male, 84 years old with history of M54.50 LOW BACK PAIN, Low back pain into both legs x4-5 years, TECHNIQUE: Multiplanar, multisequence images of the lumbar spine were acquired. IV Contrast: mL (None, if empty) FINDINGS: Cord ends at the T12-L1 level L5-S1: There is disc space narrowing. No focal disc herniation is evident. Grade 1 retrolisthesis wit h disc uncovering is present. No spinal canal stenosis. Moderate right and severe left foraminal sten osis L4-L5: Mild disc bulges anterior thecal sac compression. Bilateral facet hypertrophy has posterior la teral thecal sac compression with ligamentum flavum laxity. Mild left and moderate right foraminal st enosis is present vacuum disc phenomenon is present L3-L4: A grade 1 spondylolisthesis of both 3 anterior L4. Disc uncovering is moderate anterior thecal sac compression. Disc space narrowing is present. Severe right and moderate left foraminal stenosis present. AP spinal canal stenosis is present at the L4 superior endplate level. L2-L3: Posterior disc space narrowing is present. No focal disc herniation or spinal canal stenosis i s present. Neural foramen are patent L1-L2: No focal disc herniation or significant disc bulge. No spinal canal stenosis. Neural foramen are patent. T12-L1: No focal disc herniation or significant disc bulge. No spinal canal stenosis. Neural forame n are patent. IMPRESSION: 1. Severe L3-4 spinal canal stenosis due to ligamentum flavum laxity, spondylolisthesis and disc unco vering. 2. Multilevel degenerative disc changes. 3. Foraminal stenosis stenosis discussed above. Most severe on the right at L3-4. #4 grade 1 retrolis thesis of L5 on S1 and grade 1 anterolisthesis of L3 on L4. [facility], , 05/29/2024 9:19 PM
== END | disposition home or self-care (01) ==
LOC: RADMRIMAIN 17:07
PROVIDERS: ATTEND Internal Medicine Rheumatology
DX: M48.061 Spinal stenosis, lumbar region without neurogenic claudication (principal); M51.362 Other intervertebral disc degeneration, lumbar region with discogenic back pain and lower extremity pain; M43.17 Spondylolisthesis, lumbosacral region
CPT/HCPCS: 72148